=== PATIENT | male | born 1960 | race Caucasian/White ===

== ENCOUNTER 2017-01-15 10:17 | Emergency (ER) | payer BC ==
[2017-01-15 10:27] VITALS: TEMP 98.4; O2SAT 98
[2017-01-15] MEDS ORDERED: Aspirin 325 mg EC Tablets PO STA (10:58)
--- NOTE | 2017-01-15 11:16 | RAD ---
HISTORY: chest pain COMPARISON: Chest x-ray performed 11/08/14 TECHNIQUE: Chest PA and lateral FINDINGS: LUNGS: No focal consolidation. Please note that chest x-ray has limited sensitivity for the detection of pulmonary masses. PLEURA: No significant pleural effusion identified. No definite pneumothorax . CARDIOVASCULAR: The cardiomediastinal silhouette appears within normal limits of size. OSSEOUS STRUCTURES: Degenerative changes of the spine. VISUALIZED UPPER ABDOMEN: Unremarkable. OTHER FINDINGS: None. IMPRESSION: No focal consolidation, significant pleural effusion, or definite pneumothorax identified.
[2017-01-15 11:27] LABS: BASO % 0.6 % (0.0-2.0); EOS # 0.1 K/uL (0.0-0.7); EOS % 2.3 % (0.0-4.0); HEMATOCRIT 44.6 % (35.0-51.0); LYMPH # 1.9 K/uL (1.0-4.3); LYMPH % 34.4 % (20.0-40.0); MEAN CORPUSCULAR HEMOGLOBIN 28.9 pg (27.0-31.0); MEAN CORPUSCULAR HGB CONC 32.5 g/dL (33.0-37.0); MEAN PLATELET VOLUME 7.4 fL (7.2-11.7); MONO # 0.5 K/uL (0.0-0.8); MONO % 9.9 % (0.0-10.0); WHITE BLOOD COUNT 5.4 K/uL (4.8-10.8)
[2017-01-15 11:40] LABS: RBC URINE 1 /hpf (0-3); URINE BILIRUBIN NEGATIVE (NEGATIVE); URINE BLOOD NEGATIVE (NEGATIVE); URINE COLOR Yellow (YELLOW); URINE GLUCOSE (UA) NORMAL (Normal); URINE KETONE NEGATIVE (NEGATIVE); URINE LEUKOCYTE ESTERASE NEG Leu/uL (Negative); URINE PROTEIN NEGATIVE (NEGATIVE); URINE UROBILINOGEN NORMAL mg/dL (0.2-1.0); WBC URINE < 1 /hpf (0-5)
--- NOTE | 2017-01-15 11:47 | C.PDOC ---
History Of Present Illness 56 y/o male whose PMHx includes HTN, presents to the ED for evaluation of chest pain which began yesterday. Patient states he felt chest tightness yesterday, but found relief after eating. This morning patient experienced mild chest discomfort, which he described as dull ache prompted him to take low dose of Aspirin with relief. Patient states his PMD will be not able to see him for a couple days so he presents to the ED for further evaluation. He denies chest pain at this time. Patient states he normally does not take his blood pressure medication because it makes him feel sluggish. However, patient reports he took his medication this morning. Otherwise, patient denies headache, cough, runny nose, shortness of breath, dizziness, back pain, and abdominal pain at this time. Patient states he was evaluated in ED around 1 year ago for similar symptoms. Patient underwent a stress test, the results of which were within normal limits. Time Seen by Provider: 01/15/17 10:53 Chief Complaint (Nursing): Chest Pain History Per: Patient History/Exam Limitations: no limitations Onset/Duration Of Symptoms: Hrs Current Symptoms Are (Timing): Better Quality: Tightness Additional History Per: Patient Past Medical History Reviewed: Historical Data, Nursing Documentation, Vital Signs Vital Signs: Last Vital Signs Temp 98.4 F 01/15/17 10:25 Pulse 60 01/15/17 12:21 Resp 17 01/15/17 12:21 BP 148/90 01/15/17 12:21 Pulse Ox 98 01/15/17 13:47 - Medical History PMH: HTN Surgical History: No Surg Hx Family History: States: Unknown Family Hx - Social History Hx Tobacco Use: No Hx Alcohol Use: No Hx Substance Use: No - Immunization History Hx Tetanus Toxoid Vaccination: No Hx Influenza Vaccination: No Hx Pneumococcal Vaccination: No Review Of Systems Except As Marked, All Systems Reviewed And Found Negative. ENT: Negative for: Nose Discharge Cardiovascular: Positive for: Other (chest discomfort/tightness ). Negative for : Chest Pain, Palpitations Respiratory: Negative for: Cough, Shortness of Breath Gastrointestinal: Negative for: Abdominal Pain Musculoskeletal: Negative for: Back Pain Neurological: Negative for: Headache, Dizziness Physical Exam - Physical Exam Appears: Non-toxic, No Acute Distress Skin: Normal Color, Warm, Dry Head: Atraumatic, Normacephalic Eye(s): bilateral: Normal Inspection, EOMI Oral Mucosa: Moist Neck: Normal ROM, Supple Chest: Symmetrical, No Deformity, No Tenderness, No Ecchymosis, No Subcutaneous Emphysema Cardiovascular: Rhythm Regular, No Murmur Respiratory: Normal Breath Sounds, No Rales, No Rhonchi, No Wheezing Gastrointestinal/Abdominal: Soft, No Tenderness, No Guarding, No Rebound Back: Normal Inspection, No Vertebral Tenderness, No Paraspinal Tenderness Extremity: Bilateral: Atraumatic, Normal Color And Temperature, Normal ROM Neurological/Psych: Oriented x3, Normal Speech, Normal Motor (5/5 strength ), Other (no focal deficits ) Gait: Steady ED Course And Treatment - Laboratory Results Result Diagrams: 01/15/17 11:22 01/15/17 11:22 Lab Interpretation: No Acute Changes ECG: Interpreted By Me, Viewed By Me ECG Rhythm: Sinus Rhythm ECG Interpretation: No Acute Changes Interpretation Of ECG: Normal Sinus Rhythm at rate 68bpm. Rate From EC O2 Sat by Pulse Oximetry: 98 (on RA) Pulse Ox Interpretation: Normal - Other Rad CXR X-Ray: Interpreted by Me, Viewed By Me, Read By Radiologist Interpretation: Accession No. : [id number]. Patient Name / ID : RUSTAM QUIROZ / [id number]. Exam Date : 01/15/2017 11:00:06 ( Approved ). Study Comment : Sex / Age : M / 56Y. Creator : Raven Torres MD. Dictator : Raven Torres MD. Long Distance Operator : Ophthalmic Nurse : Raven Torres MD. Approver2 : Report Date : 01/15/2017 11:14:58. My Comment : . HISTORY: chest pain. COMPARISON: Chest x-ray performed 11/08/14. TECHNIQUE: Chest PA and lateral. FINDINGS: LUNGS: No focal consolidation. Please note that chest x-ray has limited sensitivity for the detection of pulmonary masses. PLEURA: No significant pleural effusion identified. No definite pneumothorax . CARDIOVASCULAR: The cardiomediastinal silhouette appears within normal limits of size. OSSEOUS STRUCTURES: Degenerative changes of the spine. VISUALIZED UPPER ABDOMEN: Unremarkable. OTHER FINDINGS : None. IMPRESSION: No focal consolidation, significant pleural effusion, or definite pneumothorax identified. Medical Decision Making Medical Decision Making: Impression: 56 y/o male with chest discomfort Plan: * labs * CXR * EKG * Aspirin PO Progress Notes: labs, CXR, and EKG ordered and reviewed with no acute or abnormal findings. EKG showed no ST-T changes. Troponin was negative. Patient remained on mixing machine tender cork gasket with no ischemic changes. CXR shows no acute disease Contact and spoke with PCP Dr Isidro Lemus, discussed all labs, EKG and CXR findings. He agrees patient stable for discharge and to follow up in office next week Re-assess and disposition: Upon reevaluation patient resting comfortably in no distress. He remains well and has no current chest pain or SOB. I explained results to patient and provide copy of reports. I advise patient to continue his HTN medication and aspirin for any pain as needed. I instruct patient to follow up with PCP Dr Lemus next week. Advise return to the emergency department at any time if symptoms persist or worsen. Disposition Counseled Patient/Family Regarding: Diagnosis, Need For Followup - Disposition Referrals: Isidro Lemus MD [Staff Provider] - Disposition: HOME/ ROUTINE Disposition Time: 12:21 Condition: STABLE Additional Instructions: Your labs and chest xray are normal Spoke to your primary doctor Dr Lemus who states you can follow up in office next week Continue your usual medications Return to the emergency department at any time if symptoms persist or worsen. 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 - Scribe Statement The provider has reviewed the documentation as recorded by the Scribe (Betzy Chavez) All medical record entries made by the Scribe were at my direction and personally dictated by me. I have reviewed the chart and agree that the record accurately reflects my personal performance of the history, physical exam, medical decision making, and the department course for this patient. I have also personally directed, reviewed, and agree with the discharge instructions and disposition.
[2017-01-15 11:49] LABS: CHLORIDE 99 mmol/L (98-107); POTASSIUM 4.1 mmol/L (3.6-5.2); SODIUM 138 mmol/L (132-148)
[2017-01-15 11:51] LABS: ALB/GLOB RATIO 1.3 (1.0-2.1); ALKALINE PHOSPHATASE 73 U/L (38-126); ALT/SGPT 38 U/L (21-72); AST/SGOT 30 U/L (17-59); BILIRUBIN,TOTAL 0.4 mg/dL (0.2-1.3); BLOOD UREA NITROGEN 11 mg/dL (9-20); CARBON DIOXIDE 28 mmol/L (22-30); CHOLESTEROL 188 mg/dL (0-199); GFR AFRICAN-AMERICAN > 60; GLUCOSE,RANDOM 107 mg/dL (75-110); TOTAL PROTEIN 7.5 g/dL (6.3-8.3)
[2017-01-15 11:52] LABS: CALCIUM 8.7 mg/dl (8.6-10.4)
[2017-01-15 12:22] VITALS: BP 148/90; PULSE 60; RESP 17
--- NOTE | 2017-01-23 14:34 | CARD ---
APPROVED REPORT EKG Measurement Heart [id number] <Conclusion> Normal sinus rhythm Possible Left atrial enlargement Borderline ECG
== END 2017-01-15 12:41 | disposition home or self-care (01) ==
LOC: C.ER 10:17
DX: R07.9 Chest pain, unspecified (principal); I10 Essential (primary) hypertension; Z87.891 Personal history of nicotine dependence